=== PATIENT | female | born 1955 | race Caucasian/White ===

== ENCOUNTER 2016-03-21 12:13 | Emergency (ER) | payer MEDICAID, OTHER ==
--- NOTE | 2016-03-21 12:31 | ER Document Report ---
ED Medical Screen (RME) - General Stated Complaint: BODY PAIN, SKIN SENSITIVITY Time seen by provider: 12:24 Mode of Arrival: Ambulatory Information source: Patient Notes: 61 yo female c/o skin crawling, "burden in my chest", chest pain, dazed and confused, "muslim and witches" "I am baptized- anacharcy, it will tap in. government" . She rode her bike to get here. Dosen't know the day. "This is not psychiatric-its vooddoo and poisens and witches.". "I'm not the witch- I never had been". My medcines were taken out of the house, vivance, mertazapine, suboxonewhen I was out of the house. I want to be checked into the hospital for 3 days. she is talking to herself. " frozen assests-[facility]". IVC protocol put in. TRAVEL OUTSIDE OF THE [place] IN LAST 30 DAYS: No - Related Data Allergies/Adverse Reactions: ciprofloxacin [From Cipro] Allergy (Verified 08/27/15 20:24) ciprofloxacin HCl [From Cipro] Allergy (Verified 08/27/15 20:24)
[2016-03-21 13:26] LABS: ALANINE AMINOTRANSFERASE 36 U/L (9-52); ALBUMIN 4.8 g/dL (3.5-5.0); ALKALINE PHOSPHATASE 116 U/L (38-126); ANION GAP 16 (5-19); ASPARTATE AMINO TRANSFERASE 34 U/L (14-36); BILIRUBIN,TOTAL 1.3 mg/dL (0.2-1.3); BLOOD UREA NITROGEN 12 mg/dL (7-20); CALCIUM 10.3 mg/dL (8.4-10.2); CARBON DIOXIDE 22 mmol/L (22-30); CHLORIDE 99 mmol/L (98-107); CREATININE RESULT 0.72 mg/dL (0.52-1.25); GLUCOSE 112 mg/dL (75-110); POTASSIUM 3.8 mmol/L (3.6-5.0); SODIUM 137.3 mmol/L (137-145); TOTAL PROTEIN 8.1 g/dL (6.3-8.2)
[2016-03-21 13:28] LABS: APPEARANCE,URINE CLOUDY; BILIRUBIN,URINE NEGATIVE (NEGATIVE); GLUCOSE, URINE NEGATIVE (NEGATIVE); KETONES,URINE TRACE mg/dL (NEGATIVE); LEUKOCYTE ESTERASE,URINE NEGATIVE (NEGATIVE); NITRITE,URINE NEGATIVE (NEGATIVE); PROTEIN,URINE 30 mg/dL (NEGATIVE); URINE SPECIFIC GRAVITY 1.027
[2016-03-21 13:29] LABS: ALCOHOL < 10 mg/dL (NONE DETECTED)
[2016-03-21 13:35] LABS: HEMATOCRIT 40.1 % (36.0-47.0); HEMOGLOBIN 13.9 g/dL (12.0-15.5); HGB HCT DIFFERENCE 1.6; MEAN CORPUSCULAR HEMOGLOBIN 29.5 pg (27.0-33.4); MEAN CORPUSCULAR HGB CONC 34.7 g/dL (32.0-36.0); MEAN CORPUSCULAR VOLUME 85 fl (80-97); RED BLOOD COUNT 4.71 10^6/uL (3.72-5.28); RED CELL DISTRIBUTION WIDTH 12.8 % (11.5-14.0); WHITE BLOOD COUNT 20.4 10^3/uL (4.0-10.5)
[2016-03-21 13:39] LABS: URINE BARBITURATES SCREEN NEGATIVE; URINE METHADONE SCREEN NEGATIVE; URINE OPIATES LOW NEGATIVE; URINE PHENCYCLIDINE SCREEN NEGATIVE
[2016-03-21 13:40] LABS: BAND NEUTROPHILS % (MANUAL) 1 % (3-5); BASOPHILS % (MANUAL) 0 % (0-2); EOSINOPHILS % (MANUAL) 2 % (0-6); LYMPHOCYTES % (MANUAL) 5 % (13-45); TOTAL CELLS COUNTED 100
[2016-03-21 13:41] LABS: RBC MORPHOLOGY COMMENT NORMO-CYTIC/CHROMIC
[2016-03-21] MEDS ORDERED: CLONIDINE HCL 0.1 MG TABLET PO SCH (14:30)
[2016-03-21] MEDS ORDERED: OLANZAPINE 5 MG TABLET PO SCH (14:30)
--- NOTE | 2016-03-21 14:51 | ER Document Report ---
ED General - General Chief Complaint: Psych Problem Stated Complaint: BODY PAIN, SKIN SENSITIVITY Mode of Arrival: Ambulatory TRAVEL OUTSIDE OF THE [place] IN LAST 30 DAYS: No - HPI Patient complains to provider of: psychiatric evaluation Notes: Patient coming in confusion patient upon triage having flight of ideas. Upon my evaluation patient is rocking back and forth in the bed stating that she is poison. Patient states she was drinking from her water and that she became poison today. Patient states that she also needs leave and go get the money to say all of us states that normally this time year her in her brother go out and get the money to save people Review the patient's previous visit shows psychiatric evaluations for paranoid delusions. Otherwise patient's vital signs shows mild tachycardia patient does look mildly dehydrated no signs of vomiting no signs of any critical pathology right now otherwise no signs of distress. - Related Data Allergies/Adverse Reactions: ciprofloxacin [From Cipro] Allergy (Verified 08/27/15 20:24) ciprofloxacin HCl [From Cipro] Allergy (Verified 08/27/15 20:24) Past Medical History - General Information source: Patient - Social History Smoking Status: Current Every Day Smoker Family History: Reviewed & Not Pertinent - Past Medical History Cardiac Medical History: Reports: Hx Hypertension Renal/ Medical History: Denies: Hx Peritoneal Dialysis Review of Systems - Review of Systems -: Yes ROS unobtainable due to patient's medical condition - Paranoid delusions Physical Exam - Vital signs Vitals: Temp Pulse Resp BP Pulse Ox 98.2 F 115 H 24 H 168/94 H 100 03/21/16 12:22 03/21/16 12:22 03/21/16 12:22 03/21/16 12:22 03/21/16 12:22 Interpretation: Tachycardic - General General appearance: Appears well, Alert - HEENT Head: Normocephalic, Atraumatic Eyes: Normal Pupils: PERRL - Respiratory Respiratory status: No respiratory distress Chest status: Nontender Breath sounds: Normal Chest palpation: Normal - Cardiovascular Rhythm: Regular, Tachycardia Heart sounds: Normal auscultation Murmur: No - Abdominal Inspection: Normal Distension: No distension Bowel sounds: Normal Tenderness: Nontender Organomegaly: No organomegaly - Back Back: Normal, Nontender - Extremities General upper extremity: Normal inspection, Nontender, Normal color, Normal ROM , Normal temperature General lower extremity: Normal inspection, Nontender, Normal color, Normal ROM , Normal temperature, Normal weight bearing. No: Rashi's sign - Neurological Neuro grossly intact: Yes Cognition: Normal Orientation: AAOx4 Tatum Coma Scale Eye Opening: Spontaneous Tatum Coma Scale Verbal: Oriented Tatum Coma Scale Motor: Obeys Commands Hannibal Coma Scale Total: 15 Speech: Normal Motor strength normal: LUE, RUE, LLE, RLE Sensory: Normal - Psychological Associated symptoms: Auditory hallucinations, Flight of ideas - Skin Skin Temperature: Warm Skin Moisture: Dry Skin Color: Normal Course - Re-evaluation Re-evalutation: 03/21/16 14:50 Patient laboratory shows leukocytosis however patient is afebrile. Patient has a signs of infection lungs are clear. Patient is afebrile. Unknown reason for leukocytosis patient is positive for amphetamines and marijuana. Patient is mildly tachycardic urine is very very concentrated oral hydration has been started. Otherwise patient will be cleared medically for psychiatric team to evaluate. - Vital Signs Vital signs: Temp Pulse Resp BP Pulse Ox 98.2 F 115 H 24 H 168/90 H 100 03/21/16 12:23 03/21/16 12:23 03/21/16 12:23 03/21/16 12:23 03/21/16 12:23 - Laboratory Result Diagrams: 03/21/16 12:45 03/21/16 12:45 Laboratory results interpreted by me: 03/21/16 03/21/16 03/21/16 12:45 12:45 12:45 WBC 20.4 H Seg Neuts % (Manual) 86 H Band Neutrophils % 1 L Lymphocytes % (Manual) 5 L Abs Neuts (Manual) 17.7 H Glucose 112 H Calcium 10.3 H Urine Protein 30 H Urine Ketones TRACE H Urine Urobilinogen 2.0 H Salicylates < 1.0 L Acetaminophen < 10 L Discharge - Discharge Clinical Impression: Paranoid delusion, Dehydration Leukocytosis Qualifiers: Leukocytosis type: unspecified Qualified Code(s): D72.829 - Elevated white blood cell count, unspecified Condition: Fair Disposition: PSYCH HOSP/UNIT
--- NOTE | 2016-03-21 14:51 | PSYCHOLOGICAL NOTE ---
Psych Note - Psych Note Psych Note: [facility] in an active psychosis. Patient states she is here for a "check-in call" and that she needs a "complete physical." She continued to state that she needs to get some rest and that her "skin is crawling." Clinician notes that patient is responding to internal stimuli but is easily redirect to topic. She states that she is "being poisoned " and she knows the symptoms because it has happened before. Patient is redirected back to topic after whispering about a squirrel, telling someone they are fine, and upon looking up stated "oh hi." Patient they stated that she can feel the poison, Patient reverted to whispering while looking down " drop your weapons." Patient engaged with clinician stating she "is highly protected" then reverted to hallucination "you better take that off" "no" "no" "no they will come" "no" they will pick me up." Once the patient engaged with clinician again she continued with explaining that she just had a collection of money and needed to have a complete physical. The patient then stated that she is the top guarded person in the world and had devises implanted on her so when "I am talking I am responding and reporting my paperwork." because "I know the sins of the churches and government." Patient is aware and orientated to person and place. Mood is expansive with labile affect. Patient denies suicidal and homicidal ideation. Patient is demonstrating behaviour that supports she is responding to internal stimuli with somatic, visual and auditory hallucinations; mixed delusions are noted ( grandiose,persecutory,of being controlled, somatic). Cognitive processes are currently impaired. Conversational speech is rambling. Eye Contact is fair; at times moving around the room and whispering in different directions. 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 Patient current presents with paranoia, mixed delusions, and responding to internal stimuli and presents with rambling speech. Due to the setting, ED, there is not enough information to make a more specific diagnosis. 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 Patient is demonstrating behaviour that supports she is responding to internal stimuli with somatic, visual and auditory hallucinations; mixed delusions are noted (grandiose,persecutory,of being controlled, somatic). Cognitive processes are currently impaired. Conversational speech is rambling. Patient presents with impaired cognitive processes due to her psychosis. Patient presented with a similar presentation about 9 months ago and was sent to an inpatient facility. Since her symptoms are causing her to be unable to take care of herself appropriately, it is thought that she could still benefit from acute psychiatric hospitalizations. I consulted with Dr. Thakkar about the care and management; attending physician is in agreement with recommendations and disposition.
[2016-03-21] MEDS ORDERED: CEFTRIAXONE INJ 1000 MG VIAL IV ONE (16:33)
--- NOTE | 2016-03-21 19:22 | ER Document Report ---
Doctor's Note Notes: 03/21/16 19:21 The nurse came to me concern the patient had IV Rocephin ordered for urinary tract infection, but did not have an IV Reviewing the record, and the laboratory findings, the diagnosis of urinary tract infection is doubtful. The urine will be repeated at this time, with a catheterized urine to determine if she does in fact need antibiotics for this urine. 03/21/16 21:40 A repeat urinalysis via catheter shows a dilute urine with no suggestion of infection.
--- NOTE | 2016-03-21 19:28 | EKG REPORT ---
SEVERITY:- ABNORMAL ECG - SINUS TACHYCARDIA LAD, CONSIDER LAFB OR INFERIOR INFARCT ANTERIOR INFARCT, OLD : Confirmed by: Isrrael Suh MD 21-Mar-2016 19:27:23
[2016-03-21 21:16] LABS: APPEARANCE,URINE CLEAR; BILIRUBIN,URINE NEGATIVE (NEGATIVE); GLUCOSE, URINE NEGATIVE (NEGATIVE); KETONES,URINE NEGATIVE (NEGATIVE); LEUKOCYTE ESTERASE,URINE NEGATIVE (NEGATIVE); NITRITE,URINE NEGATIVE (NEGATIVE); PROTEIN,URINE NEGATIVE (NEGATIVE); URINE SPECIFIC GRAVITY 1.005; UROBILINOGEN,URINE NEGATIVE mg/dL (<2.0)
--- NOTE | 2016-03-22 09:36 | ER Document Report ---
Doctor's Note Notes: 61-year-old female with paranoia and delusional thoughts. Medically cleared and awaiting psychiatric evaluation and recommendations. No complaints at this time. PE: AAOx4. RRR. CTAB. Calm demeanor
[2016-03-22] MEDS: OLANZAPINE 5 MG TABLET PO SCH (15:17)
[2016-03-22] MEDS: CLONIDINE HCL 0.1 MG TABLET PO SCH (15:19)
--- NOTE | 2016-03-22 16:54 | PSYCHOLOGICAL NOTE ---
Psych Note - Psych Note Psych Note: Conducted check in with patient who is a 61 year old female under IVC for psychosis. Patient today was observed responding to internal stimuli aeb sitting conversing with no one in the room. Patient continues to present delusional, and discussed a census and that she was misreported on the government census. Patient talked about this at length and was mostly difficult to follow and understand. Patient additionally reported she is prescribed Suboxone and has been for roughly 3 years, but has been without this medication x2days. Patient reports she is followed by [facility]. Patient is A&O to name, location, and year. Patient's mood is labile/manic. Affects congruent. Patient denied suicidal/homicidal ideations, intent, plan, or means. Patient endorsed "visions." Delusions were noted. Thought processes were flight of ideas. Conversational speech was pressured and rapid. Intellectual abilities were estimated within average range. Attention and focus were poor. Insight, judgment, and impulse control were poor. 298.9 (F29) Unspecified Schizophrenia and Other Psychotic Disorder Patient's presenting symptoms are similar to that of a psychotic disorder and cause clinically significant distress in all domains of her life. Patient current presents with paranoia, mixed delusions, and responding to internal stimuli and presents with rambling speech. Due to the setting, ED, there is not enough information to make a more specific diagnosis. 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 Patient does present as though she is actively still responding to internal stimuli. Note, the goal is not necessarily to eliminate the patient's delusions as they are possibly fixated, but to support patient's recovery with therapeutic levels of medications for follow if inpatient hospitalization is not able to be secured. I consulted with Dr. Thakkar in regards to the care and management of this patient.
[2016-03-23] MEDS: CLONIDINE HCL 0.1 MG TABLET PO SCH ×2 (03:50→15:08)
[2016-03-23] MEDS: OLANZAPINE 5 MG TABLET PO SCH ×2 (03:52→15:08)
[2016-03-23 15:31] VITALS: BP 123/74
== END 2016-03-23 15:20 ==
LOC: ER 12:13
DX: F22 Delusional disorders (principal); E86.0 Dehydration; D72.829 Elevated white blood cell count, unspecified; R52 Pain, unspecified
CPT/HCPCS: 93005; 99285; 36415; 87086; 80307 ×4; 85025; 80053; 81001; 93010; J3490 ×3

== ENCOUNTER 2018-04-17 19:22 | Emergency (ER) | payer MEDICAID ==
--- NOTE | 2018-04-17 22:14 | ER Document Report ---
ED Medical Screen (RME) - General Chief Complaint: Dizziness Stated Complaint: DIZZY Time Seen by Provider: 04/17/18 21:48 Primary Care Provider: TANVIR DIAZ MD [Primary Care Provider] - Follow up as needed Notes: Patient is a 63-year-old female presents to the emergency department requesting "asylum." Patient states she is typically seen at [facility] which is a mental health evaluation facility. States she does not feel safe and needs a place to stay. Patient is denying SI, HI, is admitting to auditory and visual hallucinations. GENERAL: Alert, interacts well. No acute distress. EXTREMITIES: Moves all 4 extremities spontaneously. No edema, normal radial and dorsalis pedis pulses bilaterally. No cyanosis. 5 out of 5 strength all 4 extremities NEUROLOGICAL: Alert and oriented x3. Normal speech. I have greeted and performed a rapid initial assessment of this patient. A comprehensive ED assessment and evaluation of the patient, analysis of test results and completion of the medical decision making process will be conducted by additional ED providers. TRAVEL OUTSIDE OF THE [place] IN LAST 30 DAYS: No - Related Data Allergies/Adverse Reactions: ciprofloxacin [From Cipro] Allergy (Verified 08/27/15 20:24) ciprofloxacin HCl [From Cipro] Allergy (Verified 08/27/15 20:24) Past Medical History - Social History Frequency of alcohol use: None Drug Abuse: None - Past Medical History Cardiac Medical History: Reports: Hx Hypertension Renal/ Medical History: Denies: Hx Peritoneal Dialysis Physical Exam - Vital signs Vitals: Temp Pulse Resp BP Pulse Ox 98.2 F 73 16 117/65 98 04/17/18 20:10 04/17/18 20:10 04/17/18 20:10 04/17/18 20:10 04/17/18 20:10 Course - Vital Signs Vital signs: Temp Pulse Resp BP Pulse Ox 98.2 F 73 16 117/65 98 04/17/18 20:10 04/17/18 20:10 04/17/18 20:10 04/17/18 20:10 04/17/18 20:10 Doctor's Discharge - Discharge Referrals: TANVIR DIAZ MD [Primary Care Provider] - Follow up as needed
[2018-04-17 23:43] LABS: ABSOLUTE EOSINOPHILS # (AUTO) 0.4 10^3/uL (0.0-0.6); ABSOLUTE MONOCYTES (AUTO) 0.9 10^3/uL (0.1-1.4); ABSOLUTE NEUT (AUTO) 6.3 10^3/uL (1.7-8.2); BASOPHILS % (AUTO) 0.3 % (0-2); EOSINOPHILS % (AUTO) 4.1 % (0-6); HEMATOCRIT 37.4 % (36.0-47.0); HEMOGLOBIN 12.8 g/dL (12.0-15.5); LYMPHOCYTES % (AUTO) 11.8 % (13-45); MEAN CORPUSCULAR HEMOGLOBIN 30.5 pg (27.0-33.4); MEAN CORPUSCULAR HGB CONC 34.3 g/dL (32.0-36.0); MEAN CORPUSCULAR VOLUME 89 fl (80-97); MONOCYTES % (AUTO) 10.2 % (3-13); PLATELET COUNT 231 10^3/uL (150-450); RED BLOOD COUNT 4.19 10^6/uL (3.72-5.28); RED CELL DISTRIBUTION WIDTH 13.1 % (11.5-14.0); SEGMENTED NEUTROPHILS % (AUTO) 73.6 % (42-78); TOTAL CELLS COUNTED % (AUTO) 100 %; WHITE BLOOD COUNT 8.6 10^3/uL (4.0-10.5)
[2018-04-17 23:48] LABS: APPEARANCE,URINE CLOUDY; BILIRUBIN,URINE NEGATIVE (NEGATIVE); COLOR,URINE AMBER; GLUCOSE, URINE NEGATIVE (NEGATIVE); KETONES,URINE TRACE mg/dL (NEGATIVE); LEUKOCYTE ESTERASE,URINE NEGATIVE (NEGATIVE); NITRITE,URINE NEGATIVE (NEGATIVE); PROTEIN,URINE NEGATIVE (NEGATIVE); URINE SPECIFIC GRAVITY 1.025
[2018-04-18 00:01] LABS: URINE AMPHETAMINES SCREEN UNCONFIRMED POSITIVE; URINE BARBITURATES SCREEN NEGATIVE; URINE BENZODIAZEPINES SCREEN NEGATIVE; URINE COCAINE SCREEN UNCONFIRMED POSITIVE; URINE MARIJUANA (THC) SCREEN NEGATIVE; URINE METHADONE SCREEN NEGATIVE; URINE PHENCYCLIDINE SCREEN NEGATIVE
[2018-04-18 00:10] LABS: ALANINE AMINOTRANSFERASE 16 U/L (9-52); ALBUMIN 4.4 g/dL (3.5-5.0); ALKALINE PHOSPHATASE 79 U/L (38-126); ANION GAP 8 (5-19); ASPARTATE AMINO TRANSFERASE 25 U/L (14-36); BILIRUBIN,DIRECT 0.1 mg/dL (0.0-0.4); BILIRUBIN,TOTAL 0.3 mg/dL (0.2-1.3); BLOOD UREA NITROGEN 14 mg/dL (7-20); CALCIUM 10.4 mg/dL (8.4-10.2); CARBON DIOXIDE 29 mmol/L (22-30); CHLORIDE 102 mmol/L (98-107); GLUCOSE 101 mg/dL (75-110); POTASSIUM 3.8 mmol/L (3.6-5.0); TOTAL PROTEIN 7.2 g/dL (6.3-8.2)
[2018-04-18 00:20] LABS: ACETAMINOPHEN < 10 ug/mL (10-30); ALCOHOL < 10 mg/dL (NONE DETECTED); SALICYLATE < 1.0 mg/dL (2.0-20.0)
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
[2018-04-18] MEDS ORDERED: RISPERIDONE 1 MG TABLET PO ONE (00:55)
[2018-04-18] MEDS ORDERED: LORAZEPAM 0.5 MG TABLET PO ONE (00:56)
--- NOTE | 2018-04-18 07:02 | EKG REPORT ---
SEVERITY:- ABNORMAL ECG - SINUS RHYTHM LEFT ANTERIOR FASCICULAR BLOCK : Confirmed by: Isrrael Suh MD 18-Apr-2018 07:01:53
[2018-04-18 07:31] VITALS: BP 124/76
--- NOTE | 2018-04-18 10:17 | ER Document Report ---
Doctor's Note Notes: 04/18/18 10:17 Patient has been seen and evaluated resting comfortably no acute distress. Laboratory values previous provider note and vital signs have been evaluated. Patient otherwise looks to be stable for disposition/transfer.
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
== END 2018-04-18 16:09 | disposition home or self-care (01) ==
LOC: ER 19:22
DX: R42 Dizziness and giddiness (principal); R44.3 Hallucinations, unspecified; I10 Essential (primary) hypertension; F43.10 Post-traumatic stress disorder, unspecified; Z88.3 Allergy status to other anti-infective agents
CPT/HCPCS: 93005; 99285; 36415; 80307 ×4; 85025; 80053; 81001; 93010; J3490

== ENCOUNTER 2018-04-27 02:32 | Emergency (ER) | payer MEDICAID ==
[2018-04-27] MEDS ORDERED: OLANZAPINE 5 MG TABLET PO ONE (03:25)
--- NOTE | 2018-04-27 03:35 | ER Document Report ---
Addendum entered and electronically signed by KRYS BLANK MD 04/28/18 11:39: Discharge - Discharge Clinical Impression: Homelessness Malnutrition Qualifiers: Malnutrition type: unspecified type Qualified Code(s): E46 - Unspecified protein-calorie malnutrition Condition: Stable Disposition: HOME, SELF-CARE Additional Instructions: You have been evaluated by medical and behavioral health teams have been deemed appropriate for discharge you are highly encouraged to follow-up with your outpatient mental health provider, [facility], in 3-5 days for continued outpatient services. You have provided resources of local area to include the homeless packet and mobile crisis contact information. AT ANY TIME, IF YOUR SYMPTOMS CHANGE SIGNIFICANTLY OR WORSEN OR YOU DEVELOP NEW SYMPTOMS, RETURN TO THE EMERGENCY DEPARTMENT IMMEDIATELY FOR RE-EVALUATION. Referrals: [facility] [Outside] - Follow up as needed TANVIR DIAZ MD [Primary Care Provider] - Follow up as needed Addendum entered and electronically signed by DAVID MIRANDA LCSWA 04/28/18 11:12: Discharge - Discharge Clinical Impression: Homelessness Malnutrition Qualifiers: Malnutrition type: unspecified type Qualified Code(s): E46 - Unspecified protein-calorie malnutrition Clinical Impression: (Ruled Out): Paranoid delusion Condition: Stable Disposition: HOME, SELF-CARE Additional Instructions: You have been evaluated by medical and behavioral health teams have been deemed appropriate for discharge you are highly encouraged to follow-up with your outpatient mental health provider, [facility], in 3-5 days for continued outpatient services. You have provided resources of local area to include the homeless packet and mobile crisis contact information. AT ANY TIME, IF YOUR SYMPTOMS CHANGE SIGNIFICANTLY OR WORSEN OR YOU DEVELOP NEW SYMPTOMS, RETURN TO THE EMERGENCY DEPARTMENT IMMEDIATELY FOR RE-EVALUATION. Referrals: TANVIR DIAZ MD [Primary Care Provider] - Follow up as needed [facility] [Outside] - Follow up as needed Original Note: ED General - General Chief Complaint: Psych Problem Stated Complaint: PSYCH EVAL Time Seen by Provider: 04/27/18 03:19 Primary Care Provider: TANVIR DIAZ MD [Primary Care Provider] - Follow up as needed Notes: Patient is a 63-year old female, has a history of previous visits to the emergency department under the circumstance of having paranoid delusions, usually persecutory in origin who presents tonight with rambling, pressured speech. It is very difficult to actually understand fully the patient's thought process. She states that she believes people have wires, devices implanted in her body. She points to various locations including her hands, eyes, ears. She believes that there are medications being "pumped into my body" and specifically believes that there are people who are poisoning the entire city that we live in. The patient was apparently staying at the homeless longterm, left because she felt like people there were also trying to poison her. She was apparently brought to the emergency department by the police on a voluntary basis. The patient has been hospitalized on multiple occasions by her report, does not currently take any medications. History is otherwise very limited secondary to the patient's overall mental status. TRAVEL OUTSIDE OF THE [place] IN LAST 30 DAYS: No - Related Data Allergies/Adverse Reactions: ciprofloxacin [From Cipro] Allergy (Verified 04/27/18 02:35) ciprofloxacin HCl [From Cipro] Allergy (Verified 04/27/18 02:35) Past Medical History - General Information source: Patient - Social History Smoking Status: Current Every Day Smoker Frequency of alcohol use: None Drug Abuse: Cocaine Lives with: Homeless Family History: Reviewed & Not Pertinent Patient has suicidal ideation: No Patient has homicidal ideation: No - Past Medical History Cardiac Medical History: Reports: Hx Hypertension Renal/ Medical History: Denies: Hx Peritoneal Dialysis Review of Systems - Review of Systems -: Yes ROS unobtainable due to patient's medical condition Physical Exam - Vital signs Vitals: Temp Pulse Resp BP Pulse Ox 97.9 F 70 20 97/66 L 97 04/27/18 02:42 04/27/18 02:42 04/27/18 02:42 04/27/18 02:42 04/27/18 02:42 Interpretation: Normal Notes: PHYSICAL EXAMINATION: GENERAL: Frail, emaciated woman. Appears quite anxious, pacing about the room. HEAD: Atraumatic, normocephalic. EYES: Pupils equal round and reactive to light, extraocular movements intact, sclera anicteric, conjunctiva are normal. ENT: nares patent, oropharynx clear without exudates. Moderately dry mucous membranes. NECK: Normal range of motion, supple without lymphadenopathy LUNGS: Breath sounds clear to auscultation bilaterally and equal. No wheezes rales or rhonchi. HEART: Regular rate and rhythm without murmurs ABDOMEN: Soft, nontender, normoactive bowel sounds. No guarding, no rebound. No masses appreciated. EXTREMITIES: Normal range of motion, no pitting or edema. No cyanosis. NEUROLOGICAL: No focal neurological deficits. Moves all extremities spontaneously and on command. PSYCH: Somewhat agitated, pressured speech. Rambling, paranoid delusions. SKIN: Warm, Dry, normal turgor, no rashes or lesions noted. Course - Re-evaluation Re-evalutation: 04/27/18 03:34 Patient presents with paranoid delusions, pacing about the room, pressured in her speech. Her thought process is extraordinarily disorganized. Patient also does not appear to be able to provide self-care. Does not appear to be eating, quite emaciated. Patient has been placed under involuntary commitment by me as I believe she is currently in immediate danger to herself and others. Medical screening exam unremarkable. Medical screening labs are pending. Patient has been emergency department under similar circumstances in the past. She is agreeable to receiving oral Zyprexa to help with her symptoms. - Vital Signs Vital signs: Temp Pulse Resp BP Pulse Ox 97.9 F 70 20 97/66 L 97 04/27/18 02:42 04/27/18 02:42 04/27/18 02:42 04/27/18 02:42 04/27/18 02:42 - EKG Interpretation by Me Additional EKG results interpreted by me: 04/27/18 03:33 Sinus rhythm, LAF, no ST elevations or depressions. QTC is 463. Discharge - Discharge Clinical Impression: Paranoid delusion Malnutrition Qualifiers: Malnutrition type: unspecified type Qualified Code(s): E46 - Unspecified protein-calorie malnutrition Condition: Stable Referrals: TANVIR DIAZ MD [Primary Care Provider] - Follow up as needed
[2018-04-27 04:09] LABS: APPEARANCE,URINE SLIGHTLY-CLOUDY; BILIRUBIN,URINE NEGATIVE (NEGATIVE); COLOR,URINE YELLOW; GLUCOSE, URINE NEGATIVE (NEGATIVE); KETONES,URINE NEGATIVE (NEGATIVE); LEUKOCYTE ESTERASE,URINE TRACE (NEGATIVE); NITRITE,URINE NEGATIVE (NEGATIVE); PROTEIN,URINE NEGATIVE (NEGATIVE); URINE SPECIFIC GRAVITY 1.019; UROBILINOGEN,URINE NEGATIVE mg/dL (<2.0)
[2018-04-27 04:18] LABS: ABSOLUTE BASOPHILS # (AUTO) 0.1 10^3/uL (0.0-0.2); ABSOLUTE EOSINOPHILS # (AUTO) 0.1 10^3/uL (0.0-0.6); ABSOLUTE LYMPHOCYTES (AUTO) 0.6 10^3/uL (0.5-4.7); ABSOLUTE MONOCYTES (AUTO) 0.5 10^3/uL (0.1-1.4); ABSOLUTE NEUT (AUTO) 5.9 10^3/uL (1.7-8.2); EOSINOPHILS % (AUTO) 2.1 % (0-6); HEMATOCRIT 41.1 % (36.0-47.0); HEMOGLOBIN 14.1 g/dL (12.0-15.5); LYMPHOCYTES % (AUTO) 8.1 % (13-45); MEAN CORPUSCULAR HEMOGLOBIN 30.4 pg (27.0-33.4); MEAN CORPUSCULAR HGB CONC 34.3 g/dL (32.0-36.0); MEAN CORPUSCULAR VOLUME 89 fl (80-97); MONOCYTES % (AUTO) 7.3 % (3-13); PLATELET COUNT 234 10^3/uL (150-450); RED BLOOD COUNT 4.64 10^6/uL (3.72-5.28); RED CELL DISTRIBUTION WIDTH 12.8 % (11.5-14.0); SEGMENTED NEUTROPHILS % (AUTO) 81.5 % (42-78); TOTAL CELLS COUNTED % (AUTO) 100 %; WHITE BLOOD COUNT 7.2 10^3/uL (4.0-10.5)
[2018-04-27 04:19] LABS: URINE AMPHETAMINES SCREEN NEGATIVE; URINE BARBITURATES SCREEN NEGATIVE; URINE BENZODIAZEPINES SCREEN NEGATIVE; URINE COCAINE SCREEN NEGATIVE; URINE MARIJUANA (THC) SCREEN NEGATIVE; URINE METHADONE SCREEN NEGATIVE; URINE PHENCYCLIDINE SCREEN NEGATIVE
[2018-04-27 04:35] LABS: ALANINE AMINOTRANSFERASE 28 U/L (9-52); ALBUMIN 4.6 g/dL (3.5-5.0); ALKALINE PHOSPHATASE 91 U/L (38-126); ANION GAP 11 (5-19); ASPARTATE AMINO TRANSFERASE 36 U/L (14-36); BILIRUBIN,DIRECT 0.3 mg/dL (0.0-0.4); BILIRUBIN,TOTAL 0.6 mg/dL (0.2-1.3); BLOOD UREA NITROGEN 20 mg/dL (7-20); CALCIUM 10.6 mg/dL (8.4-10.2); CARBON DIOXIDE 28 mmol/L (22-30); CHLORIDE 100 mmol/L (98-107); GLUCOSE 121 mg/dL (75-110); POTASSIUM 4.4 mmol/L (3.6-5.0); SODIUM 139.2 mmol/L (137-145); TOTAL PROTEIN 7.4 g/dL (6.3-8.2)
[2018-04-27 04:36] LABS: ACETAMINOPHEN < 10 ug/mL (10-30); ALCOHOL < 10 mg/dL (NONE DETECTED); SALICYLATE < 1.0 mg/dL (2.0-20.0)
--- NOTE | 2018-04-27 10:11 | PSYCHOLOGICAL NOTE ---
Psych Note - Psych Note Date seen by psych provider: 04/27/18 Time seen by psych provider: 08:10 - 1st attempt Psych Note: Reason for Consult: manic with delusions Patient is a 63-year old female, has a history of previous visits to the emergency department under the circumstance of having paranoid delusions, usually persecutory in origin who presents tonight with rambling, pressured speech. Patient reports that she arrived to [facility] ED by walking here. She reports that she originally stopped at a friend's house ([place]) and then continued on to [place]. She reports that her scooter broke down and while she was there she thought that he wanted to kill her which made her very angry and upset. She reports that she does not have any thoughts of wanting to harm herself and only thought of harming Emiliano because he wanted to harm her. She denies any actions or plans. When asked if she has anywhere to go, she reports that she was going to go stay with Gina and confirms that she feels safe at their house. She is able to identify she has an appointment on the this coming Wednesday at [facility]. She confirms she has been taking her medications however did run out yesterday. She reports she has no concerns about discharging and following up with [facility]. She then does ask if she could have the "seeds and wiring" taken out of her body. She reports that sometime between Wednesday and Wednesday she started to hear Emiliano Baltazar's voice. She believes that there are seeds in her that are transmitting his voice. She is not demonstrating any distress in regards to this information. She reports that she went to his home because her scooter broke down was hoping that he could help her. She reports that he is a good stuart and is shocked that he could do anything like this. She denies that she would take any actions to harm him. Patient is alert and orientated to person, place, time and circumstance. Mood is euthymic with congruent affect as evidenced by smiling engaging with clinician. Patient denies suicidal and homicidal ideation. Patient does disclose auditory hallucinations in regards to having implanted "seeds and wires." Clinician notes patient had a organized and linear conversation (to include running out of her medications yesterday and having her next appointment with [facility] on the 2 days from now); patient did not disclose her delusions until after discussion of plan of care and possible discharge was brought up. Eye contact is fair. Conversational speech was within normal rate, tone and prosody. Patient is no longer rambling and or demonstrating pressured speech. Intellectual abilities appear to be within the average range. Attention and concentration are fair. Insight, judgment, impulse control are fair. Behavioral health Team contacted [facility]; patient has an appointment Wednesday 019 at 1145am. No medication recommendations at this time Diagnosis: Polysubstance abuse per history 309.81 F43.10 Post Traumatic Stress Disorder per history provided by patient Impression\\plan: Patient is recommended for rescind of IVC. Patient was able to carry on an organized linear conversation to include discussion on running out of her medications yesterday and her upcoming appointment on Wednesday. Patient did not disclose any indications of delusions until discussion turned to care plan of care and possible discharge. Patient has significant substance abuse history patient's presentation has greatly improved since previous evening. Patient was able to identify going to her friend's home that she states she feels safe at. Dr. Thakkar was consulted and the care and management of this patient. Attending physician is not in agreement with recommendations. Patient will continue overnight for mental health observation and reevaluation tomorrow.
--- NOTE | 2018-04-27 10:31 | ER Document Report ---
Doctor's Note Notes: 04/27/18 10:27 Patient seen and evaluated. She is thin and appears malnourished. She is stating that "the Pharaohs in my head from my nose to my ears are telling me to cut myself" patient is still having active delusions and is requiring further psychiatric management. She is resting comfortably but states she does not want to eat her breakfast.
[2018-04-27] MEDS ORDERED: NICOTINE 14 MG/24 HR PATCH.TD24 TD ONE (15:41)
[2018-04-27] MEDS: RISPERIDONE 1 MG TABLET PO SCH (15:55)
[2018-04-27] MEDS: MIRTAZAPINE 15 MG TABLET PO SCH (15:55)
--- NOTE | 2018-04-27 23:21 | EKG REPORT ---
SEVERITY:- ABNORMAL ECG - SINUS RHYTHM LEFT ANTERIOR FASCICULAR BLOCK PROBABLE LEFT VENTRICULAR HYPERTROPHY CONSIDER ANTERIOR INFARCT : Confirmed by: Shanell Baeza 27-Apr-2018 23:20:52
[2018-04-28] MEDS: MIRTAZAPINE 15 MG TABLET PO SCH (09:20)
[2018-04-28] MEDS: RISPERIDONE 1 MG TABLET PO SCH (09:20)
[2018-04-28 10:07] VITALS: BP 115/85
--- NOTE | 2018-04-28 15:36 | PSYCHOLOGICAL NOTE ---
Psych Note - Psych Note Date seen by psych provider: 04/28/18 Time seen by psych provider: 10:00 Psych Note: Reason for Consult: manic with delusions Patient is a 63-year old female, has a history of previous visits to the emergency department under the circumstance of having paranoid delusions, usually persecutory in origin who presents tonight with rambling, pressured speech. Check in conducted with patient Patient reports she needed to go inpatient because she has no where safe to go. She continued to report to clinician that she knows she has to be sent inpatient if she is having hallucinations and delusions. she then states she wants the "wires and seeds" removed. Clinician asked how she knows she is have delusions or hallucinations. Patient became belligerent and again states she needs inpatient and that she knows she has to go inpatient for her safety. Behavioral health Team contacted [facility]; patient has an appointment Wednesday04/29/2018 at 1145am. No medication recommendations at this time Diagnosis: Polysubstance abuse per history 309.81 F43.10 Post Traumatic Stress Disorder per history provided by patient Impression\\plan: Patient is recommended for rescind of IVC and is cleared from acute psychiatric services. Clinician notes the patient did not disclose any indications of concerns of delusions until discussion turned to care plan of care and possible discharge yesterday. Patient states she has to go inpatient today because she has nowhere safe to go and has to be sent inpatient if she is having hallucinations and delusions. Patient then started to discuss her delusions; this is not congruent with known manifestations ie patient is fully aware of her reported delusions and only discusses concerns when faced with being discharged. It is currently believed she is homeless. Dr. Thakkar was consulted to care management this patient; attending physicians in agreement with augmentations and disposition.
== END 2018-04-28 12:00 | disposition home or self-care (01) ==
LOC: ER 02:32
DX: E46 Unspecified protein-calorie malnutrition (principal); Z59.0 Homelessness; F14.10 Cocaine abuse, uncomplicated; F17.200 Nicotine dependence, unspecified, uncomplicated; Z88.1 Allergy status to other antibiotic agents; I10 Essential (primary) hypertension
CPT/HCPCS: 93005; 99285; 36415; 80307 ×4; 85025; 80053; 81001; 93010; J3490 ×6

== ENCOUNTER 2018-04-28 14:42 | Emergency (ER) | payer MEDICAID ==
--- NOTE | 2018-04-28 15:41 | ER Document Report ---
ED Medical Screen (RME) - General Chief Complaint: Psych Problem Stated Complaint: PSYCH EVAL Time Seen by Provider: 04/28/18 15:31 Primary Care Provider: TANVIR DIAZ MD [Primary Care Provider] - Follow up as needed Mode of Arrival: Ambulatory Information source: Patient Notes: 63-year-old female presented to ED for hallucinations and possible psychotic ep isode. She was discharged from this facility this morning to follow-up with [facility]. She followed up with [facility] and the psychiatrist sent her back to the emergency room stating that she cannot be out on the street. I have had the mental health care worker come in and speak with the patient and the [facility] human[facility] teacher. Her mental health recharger is speaking with [facility] to see if we can get a bed for her for her acute episode. Mental health recharger Andre came in and spoke with [place] humanities teacher and with the patient. She states she can get her a voluntary bed at [facility]. But she would need to provide transportation as they do not provide transportation for voluntary commitment. [facility] humanities teacher states that she cannot transport her to [facility] which is about [address] Andre states that we can call the boiler repair supervisor to try to get her a cab voucher to go to [facility] for voluntary commitment. Patient is able to answer all the questions and at times is very alert and oriented and at other times appears to be hallucinating. TRAVEL OUTSIDE OF THE [place] IN LAST 30 DAYS: No - HPI Onset/Duration: Persistent Quality of pain: No pain Severity: None Pain Level: Denies Associated Symptoms: Other - Confusion possible hallucination chronic mental health Exacerbated by: Denies Relieved by: Denies Similar symptoms previously: Yes Recently seen / treated by doctor: Yes - Related Data Drug Abuse: Cocaine Allergies/Adverse Reactions: ciprofloxacin [From Cipro] Allergy (Verified 04/27/18 02:35) ciprofloxacin HCl [From Cipro] Allergy (Verified 04/27/18 02:35) Past Medical History - General Information source: Patient - Social History Cigarette use (# per day): No Chew tobacco use (# tins/day): No Drug Abuse: Cocaine Lives with: Homeless Family history: Reviewed & Not Pertinent - Past Medical History Cardiac Medical History: Reports: Hx Hypertension Pulmonary Medical History: Reports: None EENT Medical History: Reports: None Neurological Medical History: Reports: None Endocrine Medical History: Reports: None Renal/ Medical History: Reports: None Malignancy Medical History: Reports: None GI Medical History: Reports: None Musculoskeltal Medical History: Reports None Skin Medical History: Reports None Psychiatric Medical History: Reports: Hx Post Traumatic Stress Disorder, Other - substance abuse Traumatic Medical History: Reports: None Infectious Medical History: Reports: None Surgical Hx: Negative Past Surgical History: Reports: None Review of Systems - Review of Systems Constitutional: No symptoms reported EENT: No symptoms reported Cardiovascular: No symptoms reported Respiratory: No symptoms reported Gastrointestinal: No symptoms reported Genitourinary: No symptoms reported Female Genitourinary: No symptoms reported Musculoskeletal: No symptoms reported Skin: No symptoms reported Hematologic/Lymphatic: No symptoms reported Neurological/Psychological: Confusion, Hallucinations. denies: Homicidal ideation, Suicidal ideation -: Yes All other systems reviewed and negative Physical Exam - Vital signs Vitals: Temp Pulse Resp BP Pulse Ox 98.8 F 93 14 112/85 98 04/28/18 15:01 04/28/18 15:01 04/28/18 15:01 04/28/18 15:01 04/28/18 15:01 Interpretation: Normal - General General appearance: Appears well, Alert - HEENT Head: Normocephalic, Atraumatic Eyes: Normal Pupils: PERRL - Respiratory Respiratory status: No respiratory distress Chest status: Nontender Breath sounds: Normal Chest palpation: Normal - Cardiovascular Rhythm: Regular Heart sounds: Normal auscultation Murmur: No - Abdominal Inspection: Normal Distension: No distension Bowel sounds: Normal Tenderness: Nontender Organomegaly: No organomegaly - Back Back: Normal, Nontender - Extremities General upper extremity: Normal inspection, Nontender, Normal color, Normal ROM, Normal temperature General lower extremity: Normal inspection, Nontender, Normal color, Normal ROM, Normal temperature, Normal weight bearing. No: Rashi's sign - Neurological Neuro grossly intact: Yes Cognition: Normal Orientation: AAOx4 [place] Coma Scale Eye Opening: Spontaneous [place] Coma Scale Verbal: Oriented [place] Coma Scale Motor: Obeys Commands [place] Coma Scale Total: 15 Speech: Normal Motor strength normal: LUE, RUE, LLE, RLE Sensory: Normal - Psychological Associated symptoms: Agitated, Confused, Flight of ideas - Skin Skin Temperature: Warm Skin Moisture: Dry Skin Color: Normal Course - Vital Signs Vital signs: Temp Pulse Resp BP Pulse Ox 98.6 F 84 18 133/87 H 100 04/28/18 15:50 04/28/18 15:50 04/28/18 15:50 04/28/18 15:50 04/28/18 15:50 Doctor's Discharge - Discharge Clinical Impression: PTSD (post-traumatic stress disorder), Polysubstance (excluding opioids) dependence Condition: Stable Disposition: HOME, SELF-CARE Additional Instructions: Please go to the [facility] as you stated you want to voluntarily commit yourself for your increase in symptoms. [facility] is called ahead and they have a bed available for you. FOLLOW-UP CARE: If you have been referred to a physician for follow-up care, call the physicians office for an appointment as you were instructed or within the next two days. If you experience worsening or a significant change in your symptoms, notify the physician immediately or return to the Emergency Department at any time for re-evaluation. Referrals: TANVIR DIAZ MD [Primary Care Provider] - Follow up as needed
[2018-04-28 15:56] VITALS: BP 133/87
== END 2018-04-28 15:50 | disposition home or self-care (01) ==
LOC: ER 14:42
DX: F43.10 Post-traumatic stress disorder, unspecified (principal); F19.10 Other psychoactive substance abuse, uncomplicated; R44.3 Hallucinations, unspecified
CPT/HCPCS: 99283